=== PATIENT | male | born 1935 | race Caucasian/White ===

== ENCOUNTER 2020-06-30 18:44 | Emergency (ER) | payer MEDICARE ==
[~2020-06-30] VITALS: Ht 167.6 cm; Wt 86.6 kg
[~2020-06-30 18:44] MED LIST: CARB1TAB22 PO; CLON1TAB11 PO; PRAM2.252 PO
[2020-06-30 18:46] VITALS: BP 166/79
--- NOTE | 2020-06-30 19:18 | NUR ---
ROB EATON AT BS, PT TO ROOM WITH SMITH CATH IN PLACE DRAINING CLEAR YELLOW URINE WITHOUT TH BAG ATTACHED, RE[LACED WITH A BAG, POC DISCUSSED WITH PTS AND PT. PT TO BE D/C ED
== END 2020-06-30 19:31 | disposition home or self-care (01) ==
LOC: ED 19:00
DX: R33.8 Other retention of urine (principal); Z46.6 Encounter for fitting and adjustment of urinary device; Z85.46 Personal history of malignant neoplasm of prostate
CPT/HCPCS: 99281

== ENCOUNTER 2020-07-14 06:13 | Inpatient (IN) | payer MEDICARE ==
[~2020-07-14] VITALS: Ht 172.7 cm; Wt 82.0 kg
--- NOTE | 2020-07-14 06:39 | NUR ---
THIS IS AN 85M BIB EMS FROM HOME FOR SUDDEN SHARP GROIN PAIN. PT IS CURRENTLY BEING SEEN FOR POTENTIAL PROSTATE CA. PT HAS INDEWELLING CATH IN PLACE UPON ARRIVAL, PT NOTED TO BE HOT TO TOUCH RECTAL TEMP 102.0, ERP AWARE. PT WAS GIVEN 100MCG OF [employer] AND IS IN MUCH LESS PAIN AT THIS TIME. PT CONNECTED TO ALL MONITORING VSS NADN AT BEDSIDE
--- NOTE | 2020-07-14 06:47 | NUR ---
REPORT TO [facility] TRANSFER OF CARE
[2020-07-14] MEDS ORDERED: ACETAMINOPHEN 500 MG TABLET PO ONE (07:00)
[2020-07-14] MEDS ORDERED: SODIUM CHLORIDE 0.9% 1,000ML IVBOLUS ONE (07:00)
[2020-07-14] MEDS ORDERED: ACETAMINOPHEN 500 MG TABLET ONE (07:27)
[2020-07-14 07:28] LABS: BASOPHILS % (AUTO) 1 % (0-1); EOSINOPHILS % (AUTO) 1 % (1-7); LYMPHOCYTES % (AUTO) 4 % (22-44); MEAN CORPUSCULAR HEMOGLOBIN 31.3 pg (27.5-34.5); MONOCYTES % (AUTO) 5 % (2-9); NEUTROPHILS % (AUTO) 90 % (42-75); PLATELET COUNT 200 x10^3/uL (130-400); RED BLOOD COUNT 4.45 x10^6/uL (4.38-5.82); RED CELL DISTRIBUTION WIDTH 13.5 % (9.4-14.8)
[2020-07-14 07:39] LABS: ALANINE AMINOTRANSFERASE 18 U/L (12-78); ALBUMIN 2.9 g/dL (3.4-5.0); ANION GAP 6 mmol/L (5-15); CALCIUM 8.1 mg/dL (8.5-10.1); CHLORIDE 110 mmol/L (98-107); CREATININE 0.88 mg/dL (0.7-1.3)
[2020-07-14 07:41] LABS: ALKALINE PHOSPHATASE 90 U/L (45-117); BILIRUBIN,TOTAL 0.7 mg/dL (0.2-1.0); TOTAL PROTEIN 6.3 g/dL (6.4-8.2)
[2020-07-14 07:44] LABS: MD SCAN
--- NOTE | 2020-07-14 08:24 | NUR ---
UA SENT TO LAB. PT SITTING RECLINED IN BED. NAD NOTED AT THIS TIME. RESPIRATIONS EVEN AND UNLABORED. PT ENCOURAGED TO KEEP BLANKETS DOWN AND ROBE OFF AGAIN FOR TEMPERATURE. REMAINS AT BEDSIDE.
[2020-07-14 08:28] LABS: MICROSCOPIC INDICATED
[2020-07-14] MEDS ORDERED: CEFTRIAXONE 1,000 MG in DEXTROSE 5% 50 ML IVPB ONE (08:30)
[2020-07-14] MEDS ORDERED: VANCOMYCIN PER PHARMACY MC PRN (09:00)
[2020-07-14] MEDS ORDERED: PRAMIPEXOLE PO (09:06)
[2020-07-14] MEDS ORDERED: OXYBUTYNIN PO (09:06)
[2020-07-14] MEDS ORDERED: ATORVASTATIN PO (09:06)
[2020-07-14] MEDS ORDERED: PANTOPRAZOLE PO (09:06)
[2020-07-14] MEDS ORDERED: MIRABEGRON (09:06)
[2020-07-14] MEDS ORDERED: CELECOXIB PO (09:06)
--- NOTE | 2020-07-14 09:15 | NUR ---
FIRST ATTEMPT TO CALL REPORT.
--- NOTE | 2020-07-14 09:20 | NUR ---
REPORT GIVEN TO BRYCE ISLAS.
[2020-07-14] MEDS ORDERED: ONDANSETRON 2MG/ML, 2ML IVPush PRN (09:30)
[2020-07-14] MEDS: ENOXAPARIN 40 MG/0.4 ML SQ SCH (09:30)
--- NOTE | 2020-07-14 09:53 | NUR ---
PT SITTING UP IN BED WATCHING TELEVISION. NAD NOTED AT THIS TIME. RESPIRATIONS EVEN AND UNLABORED ON RA.
--- NOTE | 2020-07-14 10:00 | NUR ---
REPORT GIVEN TO BRYCE LANE.
[2020-07-14 10:27] VITALS: BP 147/72
[2020-07-14] MEDS ORDERED: CELE200C PO (10:53)
[2020-07-14] MEDS ORDERED: PHEN-583 PO (10:53)
[2020-07-14] MEDS ORDERED: OXYB5TAB10 PO (10:53)
[2020-07-14] MEDS ORDERED: ATOR40TA PO (10:53)
[2020-07-14] MEDS ORDERED: PANT40TA3 PO (10:53)
[2020-07-14] MEDS ORDERED: LIDO30CR TP (10:53)
[2020-07-14] MEDS ORDERED: VANCOMYCIN 2,000 MG in SODIUM CHLORIDE 0.9% 500 ML IV ONE (11:30)
[2020-07-14] MEDS ORDERED: PHARMACOKINETIC CONSULTATION MC ONE (11:30)
[2020-07-14] MEDS ORDERED: PHARMACOKINETIC MONITORING MC PRN (11:30)
[2020-07-14] MEDS: CEFEPIME 2 GM in DEXTROSE 5% 100 ML IV SCH (12:13)
[2020-07-14] MEDS: CARBIDOPA/LEVODOPA 25 MG/100 MG TABLET PO SCH (12:13)
[2020-07-14 15:15] VITALS: BP 168/67
[2020-07-14 18:45] VITALS: BP 137/66
[2020-07-14] MEDS: MELATONIN 5 MG TABLET PO PRN (20:47)
[2020-07-14] MEDS: ACETAMINOPHEN 325 MG TABLET PO PRN (20:48)
[2020-07-14] MEDS: POLYETHYLENE GLYCOL 17 GM PACKET PO PRN (20:48)
[2020-07-15 00:39] VITALS: BP 150/91
[2020-07-15] MEDS: CEFEPIME 2 GM in DEXTROSE 5% 100 ML IV SCH ×2 (00:48→12:09)
[2020-07-15 06:22] LABS: BASOPHILS % (AUTO) 1 % (0-1); EOSINOPHILS % (AUTO) 1 % (1-7); LYMPHOCYTES % (AUTO) 10 % (22-44); MEAN CORPUSCULAR HEMOGLOBIN 31.4 pg (27.5-34.5); MEAN CORPUSCULAR HGB CONC 34.3 g/dL (33.2-36.2); MEAN PLATELET VOLUME 8.4 fL (7.4-10.4); MONOCYTES % (AUTO) 9 % (2-9); NEUTROPHILS % (AUTO) 80 % (42-75); PLATELET COUNT 200 x10^3/uL (130-400); RED BLOOD COUNT 4.48 x10^6/uL (4.38-5.82); RED CELL DISTRIBUTION WIDTH 13.4 % (9.4-14.8)
[2020-07-15 06:24] LABS: MD NO
[2020-07-15 06:29] LABS: ANION GAP 8 mmol/L (5-15); CALCIUM 8.5 mg/dL (8.5-10.1); CHLORIDE 112 mmol/L (98-107); CREATININE 1.01 mg/dL (0.7-1.3)
[2020-07-15 07:15] VITALS: BP 135/61
[2020-07-15] MEDS: SENNA/DOCUSATE TABLET PO SCH (08:18)
[2020-07-15] MEDS: ENOXAPARIN 40 MG/0.4 ML SQ SCH (08:19)
[2020-07-15] MEDS ORDERED: POTASSIUM CHLORIDE 20 MEQ TAB.ER.PRT PO ONE (09:00)
[2020-07-15 09:09] LABS: TROPONIN I 0.621 ng/mL (0.000-0.045)
[2020-07-15] MEDS ORDERED: VANCOMYCIN 1,500 MG in SODIUM CHLORIDE 0.9% 250 ML IV SCH (12:00)
[2020-07-15 12:16] VITALS: BP 151/89
[2020-07-15] MEDS: CARBIDOPA/LEVODOPA 25 MG/100 MG TABLET PO SCH (17:09)
[2020-07-15] MEDS: PRAMIPEXOLE HOMEMEDPO SCH (17:09)
[2020-07-15 18:48] VITALS: BP 129/71
[2020-07-15 19:34] LABS: TROPONIN I 0.324 ng/mL (0.000-0.045)
[2020-07-15 20:03] VITALS: BP 126/70
[2020-07-15] MEDS: ACETAMINOPHEN 325 MG TABLET PO PRN (20:04)
[2020-07-15] MEDS: METOPROLOL TARTRATE 25 MG TAB PO SCH (20:05)
[2020-07-15] MEDS: MELATONIN 5 MG TABLET PO PRN (20:05)
[2020-07-15] MEDS: ATORVASTATIN 40 MG TABLET PO SCH (20:05)
[2020-07-16] MEDS: CEFEPIME 2 GM in DEXTROSE 5% 100 ML IV SCH ×2 (00:16→12:02)
[2020-07-16 01:40] VITALS: BP 132/79
[2020-07-16 05:47] VITALS: BP 131/69
[2020-07-16] MEDS: METOPROLOL TARTRATE 25 MG TAB PO SCH ×2 (05:51→17:09)
[2020-07-16 07:48] VITALS: BP 144/76
[2020-07-16] MEDS: ASPIRIN 81 MG TABLET CHEW PO SCH (08:22)
[2020-07-16] MEDS: SENNA/DOCUSATE TABLET PO SCH (08:23)
[2020-07-16] MEDS: CARBIDOPA/LEVODOPA 25 MG/100 MG TABLET PO SCH (08:23)
[2020-07-16 11:56] VITALS: BP 130/63
[2020-07-16] MEDS: MEROPENEM 500 MG in SODIUM CHLORIDE 0.9% 100 ML IV SCH ×2 (13:48→21:56)
[2020-07-16] MEDS: PRAMIPEXOLE HOMEMEDPO SCH (17:00)
[2020-07-16 18:55] VITALS: BP 136/69
[2020-07-16] MEDS: ATORVASTATIN 40 MG TABLET PO SCH (20:02)
[2020-07-16] MEDS: MELATONIN 5 MG TABLET PO PRN (20:03)
[2020-07-16 20:08] VITALS: BP 115/61
[2020-07-17 01:52] VITALS: BP 132/62
[2020-07-17 05:58] VITALS: BP 152/73
[2020-07-17] MEDS: MEROPENEM 500 MG in SODIUM CHLORIDE 0.9% 100 ML IV SCH (06:01)
[2020-07-17] MEDS: METOPROLOL TARTRATE 25 MG TAB PO SCH ×2 (06:04→17:51)
[2020-07-17 06:54] VITALS: BP_SYST 144; BP_SYST 170; BP_DIAS 67
[2020-07-17] MEDS ORDERED: VANCOMYCIN PER PHARMACY MC PRN (08:00)
[2020-07-17] MEDS ORDERED: VANCOMYCIN 2,000 MG in SODIUM CHLORIDE 0.9% 500 ML IV ONE (08:30)
[2020-07-17] MEDS ORDERED: PHARMACOKINETIC MONITORING MC PRN (08:30)
[2020-07-17] MEDS: SENNA/DOCUSATE TABLET PO SCH (08:52)
[2020-07-17] MEDS: ASPIRIN 81 MG TABLET CHEW PO SCH (08:52)
[2020-07-17] MEDS: CARBIDOPA/LEVODOPA 25 MG/100 MG TABLET PO SCH (08:52)
[2020-07-17] MEDS: DAPTOMYCIN 675 MG in SODIUM CHLORIDE 0.9% 100 ML IVPB SCH (12:53)
[2020-07-17] MEDS: PRAMIPEXOLE HOMEMEDPO SCH (17:00)
[2020-07-17 17:18] VITALS: BP 124/67
[2020-07-17] MEDS: ACETAMINOPHEN 325 MG TABLET PO PRN (20:25)
[2020-07-17] MEDS: IBUPROFEN 600 MG TABLET PO PRN (20:25)
[2020-07-17 20:46] VITALS: BP 151/76
[2020-07-18 00:16] VITALS: BP 110/58
[2020-07-18 04:33] VITALS: BP 102/64
[2020-07-18] MEDS: METOPROLOL TARTRATE 25 MG TAB PO SCH ×2 (04:43→16:58)
[2020-07-18 06:54] VITALS: BP 144/73
[2020-07-18] MEDS: ASPIRIN 81 MG TABLET CHEW PO SCH (08:55)
[2020-07-18] MEDS: CARBIDOPA/LEVODOPA 25 MG/100 MG TABLET PO SCH (08:55)
[2020-07-18] MEDS: SENNA/DOCUSATE TABLET PO SCH (08:56)
[2020-07-18] MEDS ORDERED: VANCOMYCIN 1,700 MG in SODIUM CHLORIDE 0.9% 250 ML IV SCH (09:00)
[2020-07-18] MEDS: ACETAMINOPHEN 325 MG TABLET PO PRN (10:31)
[2020-07-18] MEDS: MEROPENEM 1 GM in SODIUM CHLORIDE 0.9% 100 ML IV SCH ×2 (10:35→16:59)
[2020-07-18] MEDS: DAPTOMYCIN 675 MG in SODIUM CHLORIDE 0.9% 100 ML IVPB SCH (13:19)
[2020-07-18 13:46] VITALS: BP 131/73
[2020-07-18] MEDS ORDERED: PRAMIPEXOLE 0.5MG TABLET HOMEMEDPO SCH (17:00)
[2020-07-18 18:19] VITALS: BP 128/72
[2020-07-18] MEDS ORDERED: PRAMIPEXOLE 1 MG TABLET HOMEMEDPO PRN (21:00)
[2020-07-18] MEDS: CYCLOBENZAPRINE 10 MG TABLET PO PRN (22:06)
[2020-07-18] MEDS: POLYETHYLENE GLYCOL 17 GM PACKET PO PRN (22:06)
[2020-07-19 01:07] VITALS: BP 124/50
[2020-07-19] MEDS: MEROPENEM 1 GM in SODIUM CHLORIDE 0.9% 100 ML IV SCH ×3 (01:47→19:12)
[2020-07-19 05:19] VITALS: BP 133/74
[2020-07-19] MEDS: METOPROLOL TARTRATE 25 MG TAB PO SCH ×2 (05:21→19:11)
[2020-07-19 06:56] VITALS: BP 143/83
[2020-07-19] MEDS: SENNA/DOCUSATE TABLET PO SCH (10:13)
[2020-07-19] MEDS: ASPIRIN 81 MG TABLET CHEW PO SCH (10:13)
[2020-07-19] MEDS: ACETAMINOPHEN 325 MG TABLET PO PRN (11:17)
[2020-07-19] MEDS: DAPTOMYCIN 675 MG in SODIUM CHLORIDE 0.9% 100 ML IVPB SCH (12:38)
[2020-07-19 15:21] VITALS: BP 125/77
[2020-07-19] MEDS: CARBIDOPA/LEVODOPA 25 MG/100 MG TABLET PO SCH (16:55)
[2020-07-19] MEDS: PRAMIPEXOLE HOMEMEDPO SCH (16:57)
[2020-07-19 19:40] VITALS: BP 138/85
[2020-07-20 00:10] VITALS: BP 143/78
[2020-07-20] MEDS: MEROPENEM 1 GM in SODIUM CHLORIDE 0.9% 100 ML IV SCH ×3 (02:14→17:59)
[2020-07-20 06:06] VITALS: BP 148/81
[2020-07-20] MEDS: METOPROLOL TARTRATE 25 MG TAB PO SCH ×2 (06:09→17:57)
[2020-07-20] MEDS: ASPIRIN 81 MG TABLET CHEW PO SCH (09:58)
[2020-07-20] MEDS: SENNA/DOCUSATE TABLET PO SCH (09:58)
[2020-07-20] MEDS: DAPTOMYCIN 675 MG in SODIUM CHLORIDE 0.9% 100 ML IVPB SCH (11:37)
[2020-07-20] MEDS: ACETAMINOPHEN 325 MG TABLET PO PRN (12:13)
[2020-07-20] MEDS ORDERED: CALCIUM CARBONATE 500 MG TAB.CHEW PO PRN (13:30)
[2020-07-20 14:10] VITALS: BP 102/62
[2020-07-20] MEDS ORDERED: OMNIPAQUE 350 MG/ML, 75ML BOTTLE ONE (16:34)
[2020-07-20] MEDS: PRAMIPEXOLE HOMEMEDPO SCH (17:00)
[2020-07-20] MEDS: CARBIDOPA/LEVODOPA 25 MG/100 MG TABLET PO SCH (17:55)
[2020-07-20] MEDS: ENOXAPARIN 80 MG/0.8 ML SQ SCH (17:55)
[2020-07-20 20:11] VITALS: BP 127/81
[2020-07-21] MEDS: MEROPENEM 1 GM in SODIUM CHLORIDE 0.9% 100 ML IV SCH ×3 (02:11→18:20)
[2020-07-21 02:18] VITALS: BP 132/83
[2020-07-21 05:21] LABS: HCT (SEDRATE) 41.3 % (39.2-51.8)
[2020-07-21 05:27] LABS: BASOPHILS % (AUTO) 1 % (0-1); EOSINOPHILS % (AUTO) 6 % (1-7); LYMPHOCYTES % (AUTO) 23 % (22-44); MEAN CORPUSCULAR HEMOGLOBIN 30.8 pg (27.5-34.5); MEAN CORPUSCULAR HGB CONC 34.1 g/dL (33.2-36.2); MEAN PLATELET VOLUME 7.9 fL (7.4-10.4); MONOCYTES % (AUTO) 7 % (2-9); NEUTROPHILS % (AUTO) 63 % (42-75); PLATELET COUNT 226 x10^3/uL (130-400); RED BLOOD COUNT 4.67 x10^6/uL (4.38-5.82); RED CELL DISTRIBUTION WIDTH 13.5 % (9.4-14.8)
[2020-07-21 05:30] LABS: MD NO
[2020-07-21 05:31] LABS: ALANINE AMINOTRANSFERASE 14 U/L (12-78); ALBUMIN 2.7 g/dL (3.4-5.0); ANION GAP 7 mmol/L (5-15); C-REACTIVE PROTEIN, QUANT 0.93 mg/dL (0.02-0.49); CALCIUM 8.5 mg/dL (8.5-10.1); CHLORIDE 112 mmol/L (98-107); CREATININE 0.62 mg/dL (0.7-1.3)
[2020-07-21 05:34] LABS: ALKALINE PHOSPHATASE 88 U/L (45-117); BILIRUBIN,TOTAL 0.7 mg/dL (0.2-1.0); CREATINE KINASE, TOTAL 47 U/L (39-308); TOTAL PROTEIN 6.6 g/dL (6.4-8.2)
[2020-07-21 05:52] VITALS: BP 149/88
[2020-07-21] MEDS: ENOXAPARIN 80 MG/0.8 ML SQ SCH ×2 (05:56→18:21)
[2020-07-21] MEDS: METOPROLOL TARTRATE 25 MG TAB PO SCH (06:00)
[2020-07-21 07:34] VITALS: BP 135/83
[2020-07-21] MEDS: SENNA/DOCUSATE TABLET PO SCH (09:34)
[2020-07-21] MEDS: ASPIRIN 81 MG TABLET CHEW PO SCH (09:34)
[2020-07-21] MEDS: ACETAMINOPHEN 325 MG TABLET PO PRN (11:36)
[2020-07-21] MEDS ORDERED: morphine SULFATE 10 MG/ML, 1ML IVPush ONE (12:00)
[2020-07-21 13:09] VITALS: BP 140/73
[2020-07-21] MEDS: PHENAZOPYRIDINE 100 MG TABLET PO SCH ×2 (15:36→18:20)
[2020-07-21] MEDS: DAPTOMYCIN 675 MG in SODIUM CHLORIDE 0.9% 100 ML IVPB SCH (15:36)
[2020-07-21] MEDS: PRAMIPEXOLE HOMEMEDPO SCH (17:00)
[2020-07-21 17:06] VITALS: BP 146/82
[2020-07-21] MEDS: CARBIDOPA/LEVODOPA 25 MG/100 MG TABLET PO SCH (18:20)
[2020-07-21 19:02] LABS: BASOPHILS % (AUTO) 1 % (0-1); EOSINOPHILS % (AUTO) 6 % (1-7); LYMPHOCYTES % (AUTO) 21 % (22-44); MEAN CORPUSCULAR HEMOGLOBIN 31.1 pg (27.5-34.5); MEAN CORPUSCULAR HGB CONC 34.2 g/dL (33.2-36.2); MONOCYTES % (AUTO) 6 % (2-9); NEUTROPHILS % (AUTO) 66 % (42-75); PLATELET COUNT 253 x10^3/uL (130-400); RED BLOOD COUNT 4.76 x10^6/uL (4.38-5.82); RED CELL DISTRIBUTION WIDTH 13.5 % (9.4-14.8)
[2020-07-21 19:04] LABS: MD NO
[2020-07-21 19:08] VITALS: BP 101/69
[2020-07-22 01:20] VITALS: BP 123/62
[2020-07-22] MEDS: MEROPENEM 1 GM in SODIUM CHLORIDE 0.9% 100 ML IV SCH ×3 (02:17→17:22)
[2020-07-22] MEDS: ENOXAPARIN 80 MG/0.8 ML SQ SCH ×2 (05:45→17:22)
[2020-07-22 07:30] VITALS: BP 114/64
[2020-07-22] MEDS: CYCLOBENZAPRINE 10 MG TABLET PO PRN ×2 (08:38→19:21)
[2020-07-22] MEDS: IBUPROFEN 600 MG TABLET PO PRN (08:38)
[2020-07-22] MEDS: SENNA/DOCUSATE TABLET PO SCH (08:38)
[2020-07-22] MEDS: PHENAZOPYRIDINE 100 MG TABLET PO SCH ×3 (08:38→20:51)
[2020-07-22] MEDS: ASPIRIN 81 MG TABLET CHEW PO SCH (08:38)
[2020-07-22] MEDS: ACETAMINOPHEN 325 MG TABLET PO PRN (09:00)
[2020-07-22] MEDS: DAPTOMYCIN 675 MG in SODIUM CHLORIDE 0.9% 100 ML IVPB SCH (11:46)
[2020-07-22 12:04] VITALS: BP 150/86
[2020-07-22] MEDS: PRAMIPEXOLE HOMEMEDPO SCH (17:00)
[2020-07-22] MEDS: CARBIDOPA/LEVODOPA 25 MG/100 MG TABLET PO SCH (17:19)
[2020-07-22 19:33] VITALS: BP 118/72
[2020-07-22] MEDS: MELATONIN 5 MG TABLET PO PRN (20:51)
[2020-07-23] MEDS: MEROPENEM 1 GM in SODIUM CHLORIDE 0.9% 100 ML IV SCH ×3 (01:51→17:02)
[2020-07-23 01:59] VITALS: BP 157/88
[2020-07-23 03:16] LABS: BASOPHILS % (AUTO) 1 % (0-1); EOSINOPHILS % (AUTO) 7 % (1-7); LYMPHOCYTES % (AUTO) 26 % (22-44); MEAN CORPUSCULAR HEMOGLOBIN 31.1 pg (27.5-34.5); MEAN CORPUSCULAR HGB CONC 33.8 g/dL (33.2-36.2); MONOCYTES % (AUTO) 8 % (2-9); NEUTROPHILS % (AUTO) 58 % (42-75); PLATELET COUNT 260 x10^3/uL (130-400); RED BLOOD COUNT 4.38 x10^6/uL (4.38-5.82); RED CELL DISTRIBUTION WIDTH 13.3 % (9.4-14.8)
[2020-07-23 03:18] LABS: MD NO
[2020-07-23] MEDS: ENOXAPARIN 80 MG/0.8 ML SQ SCH (05:52)
[2020-07-23 07:00] VITALS: BP 133/75
[2020-07-23] MEDS: ASPIRIN 81 MG TABLET CHEW PO SCH (07:27)
[2020-07-23] MEDS: SENNA/DOCUSATE TABLET PO SCH (07:27)
[2020-07-23] MEDS: PHENAZOPYRIDINE 100 MG TABLET PO SCH ×2 (09:02→17:00)
[2020-07-23] MEDS ORDERED: LIDOCAINE 1%, 20ML ONE (10:56)
[2020-07-23] MEDS ORDERED: MIDAZOLAM 1 MG/ML, 5ML ONE ×3 (11:11→12:25)
[2020-07-23] MEDS ORDERED: NALOXONE 1 MG/ML, 2ML ONE (11:11)
[2020-07-23] MEDS ORDERED: FENTANYL PF 100 MCG/2ML ONE ×2 (11:11→12:25)
[2020-07-23] MEDS ORDERED: FLUMAZENIL 0.1 MG/1 ML, 5ML ONE (11:11)
[2020-07-23] MEDS: DAPTOMYCIN 675 MG in SODIUM CHLORIDE 0.9% 100 ML IVPB SCH ×2 (11:19→14:19)
[2020-07-23] MEDS ORDERED: LIDOCAINE 1%, 10ML ONE (11:54)
[2020-07-23] MEDS ORDERED: VISIPAQUE 270 MG/ML, 50ML BOTTLE ONE (12:46)
[2020-07-23 13:11] VITALS: BP 155/93
[2020-07-23] MEDS ORDERED: DAPT500V6 IV (14:48)
[2020-07-23] MEDS ORDERED: PRAMIPEXOLE 1 MG HOMEMEDPO (14:48)
[2020-07-23] MEDS ORDERED: ASPI-963 PO (14:48)
[2020-07-23] MEDS ORDERED: CALC200T24 PO (14:48)
[2020-07-23] MEDS ORDERED: MERO500V24 IV (14:48)
[2020-07-23] MEDS ORDERED: CARB1TAB22 PO (14:48)
[2020-07-23] MEDS ORDERED: ENOX80SY4 SQ (14:48)
[2020-07-23] MEDS ORDERED: CLON1TAB11 PO (14:49)
[2020-07-23] MEDS: ACETAMINOPHEN 325 MG TABLET PO PRN (17:00)
[2020-07-23] MEDS: CYCLOBENZAPRINE 10 MG TABLET PO PRN (17:00)
[2020-07-23] MEDS: CARBIDOPA/LEVODOPA 25 MG/100 MG TABLET PO SCH (17:00)
[2020-07-23] MEDS: PRAMIPEXOLE HOMEMEDPO SCH (17:00)
== END 2020-07-23 17:49 | DRG 698 ==
LOC: ED 06:19 → SUATTDRO 08:58 → 4WST 08:58 → 4EST 07-15 00:24 → 3N 07-17 16:58
PROVIDERS: ADMIT Internal Medicine; ATTEND Internal Medicine
PROC: 0T9B30Z Drainage of Bladder with Drainage Device, Percutaneous Approach (ICD-10-PCS; principal; 2020-07-14)
PROC: 02HV33Z Insertion of Infusion Device into Superior Vena Cava, Percutaneous Approach (ICD-10-PCS; 2020-07-22)
PROC: B5181ZA Fluoroscopy of Superior Vena Cava using Low Osmolar Contrast, Guidance (ICD-10-PCS; 2020-07-22)
PROC: B548ZZA Ultrasonography of Superior Vena Cava, Guidance (ICD-10-PCS; 2020-07-22)
PROC: 0TJ9XZZ Inspection of Ureter, External Approach (ICD-10-PCS; 2020-07-23)
DX: T83.511A Infection and inflammatory reaction due to indwelling urethral catheter, initial encounter (principal); A41.51 Sepsis due to Escherichia coli [E. coli]; I26.99 Other pulmonary embolism without acute cor pulmonale; I21.A1 Myocardial infarction type 2; G92 Toxic encephalopathy; N02.9 Recurrent and persistent hematuria with unspecified morphologic changes; Z16.12 Extended spectrum beta lactamase (ESBL) resistance; N30.40 Irradiation cystitis without hematuria; F05 Delirium due to known physiological condition; B96.89 Other specified bacterial agents as the cause of diseases classified elsewhere; C61 Malignant neoplasm of prostate; Y84.2 Radiological procedure and radiotherapy as the cause of abnormal reaction of the patient, or of later complication, without mention of misadventure at the time of the procedure; R33.8 Other retention of urine; I25.10 Atherosclerotic heart disease of native coronary artery without angina pectoris; Z66 Do not resuscitate; G20 Parkinson's disease; G25.81 Restless legs syndrome; I70.0 Atherosclerosis of aorta; I71.4 Abdominal aortic aneurysm, without rupture; N35.919 Unspecified urethral stricture, male, unspecified site; N32.0 Bladder-neck obstruction; Y84.6 Urinary catheterization as the cause of abnormal reaction of the patient, or of later complication, without mention of misadventure at the time of the procedure; F02.80 Dementia in other diseases classified elsewhere, unspecified severity, without behavioral disturbance, psychotic disturbance, mood disturbance, and anxiety; Z82.3 Family history of stroke; Z82.49 Family history of ischemic heart disease and other diseases of the circulatory system; Z80.1 Family history of malignant neoplasm of trachea, bronchus and lung; Z80.42 Family history of malignant neoplasm of prostate; Z95.5 Presence of coronary angioplasty implant and graft; Z92.3 Personal history of irradiation; Z86.73 Personal history of transient ischemic attack (TIA), and cerebral infarction without residual deficits; Z85.72 Personal history of non-Hodgkin lymphomas; Z90.79 Acquired absence of other genital organ(s)
CPT/HCPCS: 36415; 36573; 71045; 71275; 74176; 75989; 80048; 80053; 81001; 82550; 83036; 83605; 83735; 84145; 84484; 85025; 85379; 85651; 86140; 87040; 87077; 87086; 87184; 87186; 93005; 93306; 93970; 96361; 96365; 99156; 99157; C1725; G0378; J0696; J0878; J1650; J2185; J2250; J2405; J3010; J3370; Q9966; Q9967; C1729; C1751; C1769; J2270; J2310; J7030; J7040